=== PATIENT | male | born 1995 | race Caucasian/White ===

== ENCOUNTER 2017-10-15 23:59 | Emergency (ER) | payer OTHER ==
[~2017-10-15] VITALS: Ht 170.2 cm; Wt 77.1 kg
[~2017-10-15 23:59] MED LIST: BACTRIM DS TAB1 EACH PO
[2017-10-16] MEDS ORDERED: BACTRIM DS TAB1 EACH PO (00:25)
[2017-10-16] MEDS ORDERED: AUGMENTIN 500-1 EACH PO (00:25)
[2017-10-16 00:34] VITALS: BP 157/84
== END 2017-10-16 00:35 | disposition home or self-care (01) ==
LOC: M.ERS 23:59
DX: L73.9 Follicular disorder, unspecified (principal)

== ENCOUNTER 2018-01-07 21:43 | Emergency (ER) | payer OTHER ==
[~2018-01-07] VITALS: Ht 170.2 cm; Wt 72.6 kg
[~2018-01-07 21:43] MED LIST changes: +AUGMENTIN 500-1 EACH PO
[2018-01-07 22:12] LABS: URINE BILIRUBIN NEGATIVE (Negative); URINE BLOOD NEGATIVE (Negative); URINE CLARITY CLEAR; URINE COLOR YELLOW; URINE GLUCOSE-RANDOM NEGATIVE (Negative); URINE KETONES NEGATIVE (Negative); URINE LEUKOCYTES-REFLEX TRACE (Negative); URINE NITRITE-REFLEX NEGATIVE (Negative); URINE PROTEIN NEGATIVE (Negative); URINE SPECIFIC GRAVITY >= 1.030 (1.005-1.030); URINE UROBILINOGEN 0.2 E.U./dl (0.2-1.0)
[2018-01-07 22:19] LABS: MUCUS None Seen strn/LPF (None Seen); SQUAMOUS 0-3 Few /LPF (0-3)
[2018-01-07 22:20] LABS: BACTERIA-REFLEX 1-9 Few /HPF (None Seen); URINE WBC-REFLEX 6-15 Few /HPF (0-5)
[2018-01-07 22:21] LABS: CRYSTALS None Seen /LPF (None Seen); HYALINE CASTS 0-3 Few /LPF (None Seen)
[2018-01-07 22:22] LABS: URINE RBC None Seen /HPF (0-2); WBC CLUMPS Few (None Seen)
[2018-01-07] MEDS ORDERED: DOXYCYCLINE 10100 M1 PO (23:33)
[2018-01-07 23:57] VITALS: BP 144/68
== END 2018-01-07 23:58 | disposition home or self-care (01) ==
LOC: M.ERS 21:43
PROVIDERS: Nurse Practitioner Family
DX: N39.0 Urinary tract infection, site not specified (principal); I86.1 Scrotal varices; F17.210 Nicotine dependence, cigarettes, uncomplicated

== ENCOUNTER 2018-02-13 18:53 | Emergency (ER) | payer OTHER ==
[~2018-02-13] VITALS: Ht 170.2 cm; Wt 74.8 kg
[~2018-02-13 18:53] MED LIST changes: +DOXYCYCLINE 10100 M1 PO
[2018-02-13] MEDS ORDERED: ZANTAC 150MG T150 MG PO (20:09)
[2018-02-13] MEDS ORDERED: HYDROXYZINE HCL25 M2 PO (20:09)
[2018-02-13] MEDS ORDERED: PREDNISONE50 MG PO (20:09)
[2018-02-13 21:01] VITALS: BP 114/65
== END 2018-02-13 21:02 | disposition home or self-care (01) ==
LOC: M.ERS 18:53
DX: L50.1 Idiopathic urticaria (principal); F17.200 Nicotine dependence, unspecified, uncomplicated